=== PATIENT | female | born 1990 | race Caucasian/White ===

== ENCOUNTER 2024-01-30 11:21 | Emergency (ER) | payer BC, MEDICAID, SELFPAY ==
[2024-01-30 11:25] VITALS: BP 148/90; PULSE 89; RESP 18; TEMP 36.7; O2SAT 98; BMI 30.9
[2024-01-30 11:50] LABS: Glucose Point of Care 372 mg/dL (70-110)
--- NOTE | 2024-01-30 11:53 | ED_ITS ---
HPI - Weakness 2 General: Chief complaint: Weakness Stated complaint: abnormal labs Time Seen by Provider: 01/30/24 11:41 Source: patient Mode of arrival: ambulatory Limitations: no limitations History of Present Illness: Patient is a nice 33-year-old female with a history of type 1 diabetes, anxiety, depression, and elevated cholesterol here with concerns that she could be going into early DKA . Patient states last week she came down with a stomach bug and had multiple days of diarrhea as well as nausea. She states she was not vomiting. She does state over the weekend however she began feeling more nauseous and dry heaving and now has developed a head cold . Patient states she recently was changed to an insulin pump however her insurance did not fill the pump replacement cartridges. She states she was taken off of her basal insulin and was just doing the pump but now that she is out of the refill, she has been back to her manual insulin. Patient feels like the change here along with her being ill has potentially thrown her into DKA. Patient states she has not been in DKA in over 5 years. Currently during my examination patient complains of feeling weak with a headache. MD Complaint: generalized weakness Onset (ago): day(s) Duration: constant Location: generalized Migration: none Relieving factors: none Exacerbating factors: none Context: other (possible DKA) Associated symptoms: Reports headache(s) and nausea; Denies chest pain, chills, dysuria, fever(s), syncope or vomiting Review of Systems 2 Const: Denies: fever(s), chills, body aches, fatigue or malaise Eyes: Denies: change in vision, blurry vision or photophobia Card: Denies: chest pain, palpitations, irregular heart rhythm, lightheadedness, syncope or dyspnea on exertion Resp: Denies: dyspnea, productive cough or pain on inspiration GI: Reports: nausea; Denies: abdominal pain, vomiting, hematemesis, heartburn or diarrhea : Denies: flank pain, difficulty voiding, dysuria, urinary frequency, urinary urgency or urinary hesitancy Musc: Denies: neck pain, back pain, extremity pain, extremity swelling or joint pain Skin/Breast: Denies: rash Neuro: Reports: headache(s); Denies: numbness in extremities, weakness in extremities, sensory changes or dizziness PFS ED 2 PFSH: Medical History High cholesterol Type 1 diabetes Surgical History History of tonsillectomy Social History Smoking and tobacco/nicotine status: never used tobacco/nicotine Physical Exam 2 Const: COMMON NORMALS: no acute distress, average body habitus, patient oriented x3, no limitations, healthy appearing, alert and well nourished G ENERAL APPEARANCE: cooperative ORIENTATION/CONSCIOUSNESS: Yes awake, Yes oriented to person, Yes oriented to place and Yes oriented to time HENMT: COMMON NORMALS: normocephalic and atraumatic HEAD & SCALP: normal to inspection, normocephalic and atraumatic FACE & SINUS: normal facial exam and sinus tenderness MOUTH: Normal oral and palatal mucosa present and lip normal THROAT: posterior oropharynx normal and tonsils normal Eye: GENERAL EYE: appearance normal, both eyes and all related structures Neck/C-Spine: COMMON NORMALS: full ROM, no lymphadenopathy, supple and no meningeal signs Chest: COMMONS NORMALS: normal inspection of the chest Resp: COMMON NORMALS: normal respiratory effort and clear to auscultation bilaterally AUSCULTATION: clear to auscultation bilaterally Cardio: COMMON NORMALS: regular rate and regular rhythm RATE: regular rate RHYTHM: regular rhythm GI: COMMON NORMALS: Normal to inspection, nondistended, normoactive bowel sounds present, Soft to palpation, non-tender, No hepatosplenomegaly present and no masses PALPATION: Yes Soft to palpation and Yes No hepatosplenomegaly present : COMMON NORMALS: Yes no CVA tenderness BLADDER/KIDNEY EXAM: Yes no CVA tenderness Back/Pelvis: COMMON NORMALS: no CVA tenderness and thoracic and lumbar spine normal to inspection Extremity: COMMON NORMALS: normal to inspection GENERAL: Yes normal exam except as noted Neuro: OMI COMA SCALE: document GCS findings Omi coma scale eye opening: Spontaneous Trezevant coma scale verbal response: Orientated Trezevant coma scale motor response: Obey commands Trezevant coma scale total score: 15 COMMON NORMALS: patient oriented x3, moves all extremities, no focal motor deficits and no sensory deficits noted SENSORIUM/ORIENTATION: Yes alert, Yes oriented to person, Yes oriented to place and Yes oriented to time MENINGEAL SIGNS: Yes no meningeal signs Skin: COMMON NORMALS: no rashes or lesions noted GENERAL SKIN EXAM: no rashes or lesions noted Course 2 Vital Signs: Vital signs: Vital Signs Temperature 98.1 F 01/30/24 11:25 Pulse Rate 82 01/30/24 12:03 Respiratory Rate 16 01/30/24 13:06 Blood Pressure 144/90 01/30/24 13:06 Pulse Oximetry 99 01/30/24 13:06 Oxygen Delivery Me thod Room Air 01/30/24 13:06 MDM - Weakness Medical Decision Making Patient arrives in no acute distress with stable vital signs. Blood work overall is not indicative of acute DKA. Her serum ketones are negative. Her ABG pH is normal. Gap is mildly elevated at 22.4. Remainder of labs including her bicarb are normal. Glucose upon arrival was 378. She states her glucose averages at home are roughly 250. Patient was given insulin and fluids here and repeat glucose is 249. UA obtained which does not show infection. Her CXR is normal. Respiratory panel collected and pending. Most likely symptoms including her hyperglycemia secondary to recent viral illness. I do recommend she speak to Dr. Danielson in regards to current insulin regimen as she is currently awaiting preauthorization for insurance to cover refill pump cartridges. Currently she is back to doing her manual fast acting insulin. Recommend speaking to their office about restarting her basal insulin in the meantime. Patient is stable for discharge from an ED standpoint. Lab Data 01/30/24 11:58 01/30/24 11:58 Radiology Impressions Chest X-Ray 01/30/24 12:33 IMPRESSION: No acute findings. Laboratory Results WBC 14.67 10^3/uL (3.29-11.43) H 01/30/24 11:58 RBC 4.30 10^6/uL (3.85-5.65) 01/30/24 11:58 Hgb 12.90 g/dL (11.27-16.99) 01/30/24 11:58 Hct 39.7 % (36-47) 01/30/24 11:58 MCV 92.3 fl (85-98) 01/30/24 11:58 MCH 30.0 pg (27-33) 01/30/24 11:58 MCHC 32.5 g/dL (30-55) 01/30/24 11:58 RDW 13.8 % (12.1-15.1) 01/30/24 11:58 Plt Count 261 10^3/cmm (157-399) 01/30/24 11:58 MPV 12.4 fL (7.4-10.4) H 01/30/24 11:58 Neut % (Auto) 79.7 % 01/30/24 11:58 Lymph % (Auto) 14.9 % 01/30/24 11:58 Holt % (Auto) 4.6 % 01/30/24 11:58 Eos % (Auto) 0.2 % 01/30/24 11:58 Baso % (Auto) 0.3 % 01/30/24 11:58 Neut # (Auto) 11.68 10^3/uL (1.8-7.7) H 01/30/24 11:58 Lymph # (Auto) 2.2 10^3/uL (0.8-4.8) 01/30/24 11:58 Holt # (Auto) 0.7 10^3/uL (0.2-0.9) 01/30/24 11:58 Eos # (Auto) 0.0 10^3/uL (0.0-0.8) 01/30/24 11:58 Baso # (Auto) 0.1 10^3/uL (0.0-0.1) 01/30/24 11:58 Nucleated RBC % (auto) 0 % 01/30/24 11:58 Nucleated RBCs # 0.0 /100WBC 01/30/24 11:58 Specimen Type Arterial 01/30/24 11:58 Sample Site Radial, left 01/30/24 11:58 ABG pH 7.41 (7.35-7.45) 01/30/24 11:58 ABG pCO2 34.5 mmHg (35-45) L 01/30/24 11:58 ABG pO2 77.7 mmHg (80.0-100.0) L 01/30/24 11:58 ABG PO2/FiO2 Ratio 0 01/30/24 11:58 ABG HCO3 21.9 mmol/L (22-26) L 01/30/24 11:58 ABG Base Excess -2.1 mmol/L (-2.0-2.0) L 01/30/24 11:58 Trevon Test Pos 01/30/24 11:58 Hematocrit 38.3 % (37-47) 01/30/24 11:58 Hgb O2 Saturation 95.7 % (95-100) 01/30/24 11:58 Carboxyhemoglobin 0.8 %THgb (0.4-20.1) 01/30/24 11:58 Methemoglobin 0.4 % (0.4-1.5) 01/30/24 11:58 Total Hemoglobin 12.5 g/dL (12-16) 01/30/24 11:58 O2 Delivery Device Room air 01/30/24 11:58 FiO2 21.0 % 01/30/24 11:58 Health Education Aide ID [place] 01/30/24 11:58 Sodium 133 mmol/L (136-145) L 01/30/24 11:58 Potassium 4.4 mmol/L (3.5-5.1) 01/30/24 11:58 Chloride 93 mmol/L (98-107) L 01/30/24 11:58 Carbon Dioxide 22 mmol/L (22-29) 01/30/24 11:58 Anion Gap 22.4 (5-19) H 01/30/24 11:58 BUN 10 mg/dL (6-20) 01/30/24 11:58 Creatinine 0.7 mg/dL (0.5-0.9) 01/30/24 11:58 GFR Calculation 97.0 mL/min (90-130) 01/30/24 11:58 Glucose 378 mg/dL (65-115) H 01/30/24 11:58 POC Glucose 249 mg/dL (70-110) H 01/30/24 13:03 Calculated Osmolality 291 mOsm/kg (285-295) 01/30/24 11:58 Calcium 8.9 mg/dL (8.5-10.5) 01/30/24 11:58 Phosphorus 2.5 mg/dL (2.5-4.5) 01/30/24 11:58 Magnesium 1.8 mg/dL (1.7-2.3) 01/30/24 11:58 Total Bilirubin 0.4 mg/dL (0.15-1.2) 01/30/24 11:58 AST 17 U/L (0-32) 01/30/24 11:58 ALT 21 U/L (0-33) 01/30/24 11:58 Alkaline Phosphatase 86 U/L (35-105) 01/30/24 11:58 Total Protein 7.2 g/dL (6.6-8.7) 01/30/24 11:58 Albumin 4.1 g/dL (3.5-5.2) 01/30/24 11:58 Globulin 3.1 g/dL (1.3-4.6) 01/30/24 11:58 Lipase 24 U/L (13-60) 01/30/24 11:58 HCG, Qual Negative (Negative) 01/30/24 11:58 Urine Color Yellow (Yellow) 01/30/24 12:15 Urine Appearance Clear (CLEAR) 01/30/24 12:15 Urine pH 5 (5-7) 01/30/24 12:15 Ur Specific [place] 1.015 (1.005-1.030) 01/30/24 12:15 Urine Protein Neg (Negative) 01/30/24 12:15 Urine Glucose (UA) 4+ (Normal) H 01/30/24 12:15 Urine Ketones 3+ (Negative) H 01/30/24 12:15 Urine Blood Neg (Negative) 01/30/24 12:15 Urine Nitrate Negative (Negative) 01/30/24 12:15 Urine Bilirubin Neg (Negative) 01/30/24 12:15 Urine Urobilinogen Norm mg/dL (Negative) 01/30/24 12:15 Ur Leukocyte Esterase Negative (Negative) 01/30/24 12:15 Serum Ketones Negative (Negative) 01/30/24 11:58 All radiology interpretation(s) finalized by discharge Discharge Plan Discharge Patient Disposition: Home Clinical Impression: Viral illness, Hyperglycemia Condition: Stable Prescriptions: No Action (DME) Dexcom G6 Transfusion Aide Misc See Rx Instructions .Route Rx Instructions: As directed (DME) Dexcom G6 Sensor Device See Rx Instructions .Route Rx Instructions: As directed (DME) Dexcom G6 Transmitter Device See Rx Instructions .Route Rx Instructions: As directed (DME) Omnipod 5 G6 Intro Kit (Gen 5) Cartridge See Rx Instructions .Route Qty: 1 0RF Rx Instructions: As directed (DME) Omnipod 5 G6 Pods (Gen 5) Cartridge See Rx Instructions .Route Qty: 5 1RF Rx Instructions: As directed insulin lispro [Humalog U-100 Insulin] 100 unit/mL solution See Rx Instructions continuous subcutaneous infusion .via pump Qty: 40 1RF Rx Instructions: 100 units max daily dose VIA PUMP; sertraline 100 mg tablet 100 mg PO DAILY buspirone 10 mg tablet 10 mg PO BID amoxicillin-pot clavulanate 875-125 mg tablet 1 tab PO BID Vitamin D3 25 mcg (1,000 unit) Capsule 25 mcg PO DAILY Discharge Orders: Discharge ED (Routine); Ordered 01/30/24 Ordered By: Letty Meier Referrals: Radha Quijano DO [Primary Care Provider] - Activity Restrictions/Additional Instructions: As we discussed please contact your triage registered nurse for further instructions in regards to your insulin as you await prior authorization from your insurance for refills for your insulin pump. Coding Level of Care Code ED [employer]rol[employer] Dispatcher for Iris Christiansen
[2024-01-30 12:02] LABS: ABG PCO2 34.5 mmHg (35-45); ABG PH Result 7.41 (7.35-7.45); Arterial Blood Gas Hematocrit 38.3 % (37-47); Base Excess ABG -2.1 mmol/L (-2.0-2.0); Blood Gas Allen Test Pos; Blood Gas Operator Identificat MONRO; Blood Gas Sample Site Radial, left; Blood Gas Sample Type Arterial; Carboxyhemoglobin 0.8 %THgb (0.4-20.1); HCO3 ABG 21.9 mmol/L (22-26); HGB O2 Sat 95.7 % (95-100); Methemoglobin 0.4 % (0.4-1.5); Oxygen Device ROOM AIR; PO2 ABG 77.7 mmHg (80.0-100.0); PO2 FiO2 Ratio Arterial Blood 0; Total Hemoglobin 12.5 g/dL (12-16)
[2024-01-30 12:03] VITALS: BP 144/90; PULSE 82; RESP 16; O2SAT 95
[2024-01-30 12:05] LABS: Basophils # 0.1 10^3/uL (0.0-0.1); Basophils % 0.3 %; Eosinophils % 0.2 %; Hematocrit 39.7 % (36-47); Lymphocytes # 2.2 10^3/uL (0.8-4.8); Lymphocytes % 14.9 %; Mean Corpuscular HGB Conc 32.5 g/dL (30-55); Mean Corpuscular Volume 92.3 fl (85-98); Mean Platelet Volume 12.4 fL (7.4-10.4); Monocytes # 0.7 10^3/uL (0.2-0.9); Monocytes % 4.6 %; Neutrophils # 11.68 10^3/uL (1.8-7.7); Neutrophils % 79.7 %; Nucleated Red Blood Cells % 0 %; Platelet Count 261 10^3/cmm (157-399); Red Cell Distribution Width 13.8 % (12.1-15.1); White Blood Count 14.67 10^3/uL (3.29-11.43)
[2024-01-30 12:20] LABS: HCG, Serum Qual Negative (Negative)
[2024-01-30 12:20] LABS: Add Urine Microscopic? NO; Charge for UA Resulting for Rev
[2024-01-30] MEDS: sodium chloride 0.9% 1,000 ML 999 ML IV (12:20)
[2024-01-30] MEDS: insulin regular-human 100 units/1 mL 10 UNIT IVP (12:20)
[2024-01-30 12:22] LABS: Ketone (Acetest) Serum Negative (Negative)
[2024-01-30 12:25] LABS: Bilirubin Urine Neg (Negative); Blood Urine Neg (Negative); Glucose Urine UA 4+ (Normal); Ketones Urine 3+ (Negative); Leukocyte Esterase Urine Negative (Negative); Nitrate Urine Negative (Negative); Protein Urine Neg (Negative); Specific Gravity, Urine 1.015 (1.005-1.030); Urine Appearance Clear (CLEAR); Urine Color Yellow (Yellow); Urobilinogen Urine Norm (Negative); pH Urine 5 (5-7)
[2024-01-30 12:28] LABS: Alanine Aminotransferase 21 U/L (0-33); Albumin Level 4.1 g/dL (3.5-5.2); Alkaline Phosphatase 86 U/L (35-105); Anion Gap 22.4 (5-19); Aspartate Amino Transferase 17 U/L (0-32); Blood Urea Nitrogen 10 mg/dL (6-20); Calcium 8.9 mg/dL (8.5-10.5); Carbon Dioxide 22 mmol/L (22-29); Chloride 93 mmol/L (98-107); Globulin 3.1 g/dL (1.3-4.6); Glucose 378 mg/dL (65-115); Lipase 24 U/L (13-60); Magnesium 1.8 mg/dL (1.7-2.3); Osmolality Calculated 291 mOsm/kg (285-295); Phosphorus 2.5 mg/dL (2.5-4.5); Potassium 4.4 mmol/L (3.5-5.1); Sodium 133 mmol/L (136-145); Total Bilirubin 0.4 mg/dL (0.15-1.2); Total Protein 7.2 g/dL (6.6-8.7)
--- NOTE | 2024-01-30 12:33 | XRR_ITS ---
PROCEDURE INFORMATION: Exam: XR Chest Exam date and time: 01/30/2024 12:37 PM Age: 33 years old Clinical indication: Cough; Additional info: Uri like symptoms TECHNIQUE: Imaging protocol: Radiologic exam of the chest. Views: 1 view. COMPARISON: No relevant prior studies available. FINDINGS: Lungs: Unremarkable. No consolidation. Pleural spaces: Unremarkable. No pleural effusion. No pneumothorax. Heart/Mediastinum: Unremarkable. No cardiomegaly. Bones/joints: Unremarkable. XR/XR chest 1V portable [id number] IMPRESSION: No acute findings.
[2024-01-30 13:05] LABS: Glucose Point of Care 249 mg/dL (70-110)
[2024-01-30 13:06] VITALS: BP 144/90; RESP 16; O2SAT 99
[2024-01-30 13:35] VITALS: BP 122/78; PULSE 81; RESP 16; O2SAT 99
[2024-01-30 14:03] LABS: Adenovirus Not Detected (NOT DETECT); Chlamydia Pneumoniae Not Detected (NOT DETECT); Coronavirus 229E,HKU1,NL63,OC4 Not Detected (NOT DETECT); Human Metapneumovirus Not Detected (NOT DETECT); Human Rhinovirus/Enterovirus Detected (NOT DETECT); Influenza A Not Detected (NOT DETECT); Influenza A H1 Not Detected (NOT DETECT); Influenza A H1-2009 Not Detected (NOT DETECT); Influenza A H3 Not Detected (NOT DETECT); Influenza B Not Detected (NOT DETECT); Mycoplasma Pneumoniae Not Detected (NOT DETECT); Parainfluenza Virus Type 1 Not Detected (NOT DETECT); Parainfluenza Virus Type 2 Not Detected (NOT DETECT); Parainfluenza Virus Type 3 Not Detected (NOT DETECT); Parainfluenza Virus Type 4 Not Detected (NOT DETECT); Respiratory Syncytial Virus A Not Detected (NOT DETECT); SARS-COV-2 Not Detected (NOT DETECT)
[2024-01-30 14:07] LABS: Respiratory Syncytial Virus B Detected (NOT DETECT)
== END 2024-01-30 13:36 | disposition home or self-care (01) ==
PROVIDERS: Emergency Medicine; Emergency Provider Physician Assistant; PCP Family Medicine
DX: B34.9 Viral infection, unspecified (principal); E10.65 Type 1 diabetes mellitus with hyperglycemia; Z79.4 Long term (current) use of insulin
CPT/HCPCS: 36416; 36600; 71045; 80053; 81003; 82009; 82805; 82962; 83690; 83735; 84100; 84703; 85025; 87486; 87581; 87633; 96361; 96374; 99284; J1815; J7030

== ENCOUNTER 2024-04-06 07:33 | Outpatient (CLI) | payer BC, SELFPAY ==
--- NOTE | 2024-04-06 07:45 | US_ITS ---
WS: [id number] RIGHT UPPER QUADRANT ULTRASOUND HISTORY: RUQ PAIN COMPARISON: 12/05/2012 Liver: 16.5 cm in length. Normal size liver and echogenicity. No bile duct dilatation or mass. Portal Vein: Normal hepatopetal flow with monophasic waveform. Gallbladder: Normally distended gallbladder. There is a small gallbladder polyp of 2 mm along the non dependent wall. No pericholecystic fluid. CBD: 0.3 cm Pancreas: Obscured by bowel gas. Right kidney: 12.1 cm in length. Normal size and echogenicity. No hydronephrosis or mass. Aorta and IVC: Unremarkable abdominal aorta and IVC. No ascites. US/US abdomen limited [id number] IMPRESSION: 1. Very small gallbladder polyp. No stones in the gallbladder. 2. No bile duct dilatation. 3. Completely obscured pancreas.
== END 2024-04-06 07:34 | disposition home or self-care (01) ==
LOC: RAD 07:33
PROVIDERS: PCP Family Medicine; Visit Provider Family Medicine
DX: K82.4 Cholesterolosis of gallbladder (principal); R10.11 Right upper quadrant pain
CPT/HCPCS: 76705

== ENCOUNTER 2024-06-29 21:41 | Inpatient (IN) | payer BC, SELFPAY ==
[2024-06-29 21:45] VITALS: BMI 28.5
[2024-06-29 21:48] VITALS: BP 140/77; PULSE 104; RESP 23; TEMP 37.3; O2SAT 100
--- NOTE | 2024-06-29 21:54 | P.HP_ITS ---
Providers/Chief Complaint Admitting Physician: Rob Beckham MD Primary Care Provider: Radha Quijano DO History of Present Illness Francisca Pavon is a 33 year old female with a past medical history significant for type 1 diabetes mellitus, anxiety, depression, and hyperlipidemia who transfers from [facility] emergency department for higher level care in the setting of diabetic ketoacidosis. Patient reports she was in her usual state of health until 06/28 when she woke up with severe nausea and vomiting. She reports she has been unable to hold anything down. Nausea and vomiting was followed by diarrhea then dry heaving. She endorses generalized malaise and fatigue. Oral intake worsens symptoms. Denies alleviating factors. Denies fevers, chills, dysuria, or other infectious symptoms. Patient has a known history of type 1 diabetes mellitus. She reports she was diagnosed around age 20 at the same time she found out she was . She follows with Dr. Danielson at [facility] endocrinology clinic. She was previously on CGM and continuous insulin pump. She reports over the summer she lost her healthcare coverage and therefore could not afford the supplies or insulin. She states she has been using short acting insulin and carb counting on a 1:10 ratio. She has been using small doses of short acting insulin to try to cover for basal needs. She states that she now does have coverage and plans on restarting her CGM and insulin pump after discharge. At the outside hospital ED, labs showed: CBC 16.2>13.6/43.5<440 135/4.4/97/5/11/0.7<471 AG 37 Lactic acid 3.3 -> 2.0 ABG 7.18/17/112/6 on FiO2 0.21 UDS +THC UA 2+ glucose, 3+ ketones, WBC none, LE negative, nitrite negative Urine test negative Review of Systems Narrative: A complete review of systems was obtained and is negative except as stated in HPI. Medications/Allergies Home Medications Medication Instructions Recorded Confirmed Last Taken Type blood-glucose meter,continuous 05/05/23 04/12/24 Unknown History (Dexcom G6 [place] [facility] [place]) blood-glucose sensor (Dexcom G6 05/05/23 04/12/24 Unknown History Sensor device) blood-glucose transmitter (Dexcom 05/05/23 04/12/24 Unknown History G6 Transmitter device) amoxicillin 875 mg-potassium 1 tab PO BID 01/30/24 04/12/24 Unknown History clavulanate 125 mg tablet buspirone 10 mg tablet 10 mg PO BID 01/30/24 04/12/24 01/29/24 History cholecalciferol (vitamin D3) 25 25 mcg PO DAILY 01/30/24 04/12/24 01/29/24 History mcg (1,000 unit) capsule (Vitamin D3) insulin lispro 100 unit/mL See Rx Instructions continuous 01/30/24 04/12/24 01/30/24 Rx subcutaneous solution (Humalog subcutaneous infusion .via pump U-100 Insulin) #40 mL sertraline 100 mg tablet 100 mg PO DAILY 01/30/24 04/12/24 01/29/24 History insulin pump cartridge,automated #1 ea 02/06/24 04/12/24 Unknown Rx dose,BT with controller subcutaneous (Omnipod 5 G6 Intro Kit (Gen 5) subcutaneous cartridge with controller) insulin pump cart,automated,BT #10 ea 03/19/24 04/12/24 Unknown Rx (Omnipod 5 G6 Pods (Gen 5) subcutaneous cartridge) Allergies Allergy/AdvReac Type Severity Reaction Status Date / Time No Known Allergies Allergy Verified 04/12/24 07:57 PFSH Acute PFSH: Medical History Depression Anxiety High cholesterol Type 1 diabetes Surgical History History of surgery on arm History of tonsillectomy Family History Mother Diabetes mellitus type 1 Grandmother Diabetes mellitus, type 2 Social History Smoking and tobacco/nicotine status: never used tobacco/nicotine Physical Exam Narrative: General: Patient is awake. Appears fatigued. Head: Normocephalic. Atraumatic. EOM intact. Dry mucous membranes. Neck: No JVD. Cardiovascular: RRR. No gallops. No murmurs. No peripheral edema. Lungs: Clear to auscultation, no use of accessory muscles, no crackles or wheezes. Skin: No jaundice. No rashes. Abdomen: Normal bowel sounds, abdomen soft and nontender. Genito Urinary: Genital exam not performed since complaints not related. Rectal: Rectal exam not performed since no symptoms indicated blood loss. Extremities: No cyanosis or clubbing. Musculoskeletal: No swollen or erythematous joints. Neurological: Moves all 4 extremities. No myoclonus. A&P Assessment and plan (1) DKA (diabetic ketoacidosis): Trigger suspected to be insulin nonadherence Urinalysis negative for infection outside hospital Urine test negative at outside hospital Evaluate for underlying infection Start insulin drip Trend electrolytes every 4 hours N.p.o., ice chips and medications okay Aggressive IV fluids (2) Severe dehydration: Severe dehydration with intractable nausea and vomiting secondary to DKA Aggressive IV fluid resuscitation Antiemetics as needed Supportive care (3) Type 1 diabetes: Previously on CGM and insulin pump, she plans to restart that she has coverage Follows with Dr. Danielson, will need outpatient follow-up after discharge DKA management as above (4) Anxiety: Plan to continue home meds after list is updated (5) Depression: Plan to continue home meds after list is updated (6) High cholesterol: Plan to continue home meds after list is updated Plan DVT prophylaxis: Lovenox CODE STATUS: Full code Attestations Medical Necessity Statement*: Patient presents with diabetic ketoacidosis with severe dehydration and sequela of hematologic and metabolic derangements with expected hospitalization to cross 2 midnights for appropriate treatment of DKA for which patient will be admitted to inpatient status. Coding Level of Care Code Acute Code for [facility] Diagnoses DKA (diabetic ketoacidosis) E11.10 Severe dehydration E86.0 Type 1 diabetes E10.9 Anxiety F41.9 Depression F32.A High cholesterol E78.00
[2024-06-29 22:00] VITALS: BP 140/77; PULSE 97; RESP 17; O2SAT 99
[2024-06-29] MEDS: INSULIN REGULAR IN 0.9 % NACL 100 UNIT/100 ML BAG 7.5 UNIT IV (22:27)
[2024-06-29] MEDS: ondansetron 2 mg/ML SDV 2 mL 4 MG IVP (22:38)
[2024-06-29] MEDS: enoxaparin 40 mg/0.4 mL Syringe SUBCUT (22:38)
[2024-06-29] MEDS: dextrose 5%-sod chloride 0.45% 1,000 ML 150 ML IV (22:46)
[2024-06-29 22:48] LABS: Basophils % 0.1 %; Hematocrit 40.7 % (36-47); Lymphocytes # 1.8 10^3/uL (0.8-4.8); Lymphocytes % 11.9 %; Mean Corpuscular HGB Conc 31.4 g/dL (30-55); Mean Corpuscular Hemoglobin 29.7 pg (27-33); Mean Corpuscular Volume 94.4 fl (85-98); Mean Platelet Volume 12.9 fL (7.4-10.4); Monocytes # 1.4 10^3/uL (0.2-0.9); Monocytes % 9.3 %; Neutrophils # 11.96 10^3/uL (1.8-7.7); Neutrophils % 78.2 %; Nucleated Red Blood Cells % 0 %; Platelet Count 341 10^3/cmm (157-399); Red Blood Count 4.31 10^6/uL (3.85-5.65); Red Cell Distribution Width 14.1 % (12.1-15.1); White Blood Count 15.32 10^3/uL (3.29-11.43)
[2024-06-29 23:00] VITALS: BP 144/79; PULSE 103; RESP 20; O2SAT 100
[2024-06-29 23:04] VITALS: PULSE 99
[2024-06-29 23:09] LABS: Alanine Aminotransferase 15 U/L (0-33); Albumin Level 4.3 g/dL (3.5-5.2); Alkaline Phosphatase 95 U/L (35-105); Anion Gap 25.4 (5-19); Aspartate Amino Transferase 13 U/L (0-32); Blood Urea Nitrogen 9 mg/dL (6-20); Calcium 9.5 mg/dL (8.5-10.5); Carbon Dioxide 11 mmol/L (22-29); Chloride 105 mmol/L (98-107); Creatinine Clr Calc Pharmacy 89.2783; Globulin 2.1 g/dL (1.3-4.6); Glomerular Filtration Rate 72.6 mL/min (90-130); Glucose 238 mg/dL (65-115); Osmolality Calculated 290 mOsm/kg (285-295); Phosphorus 1.7 mg/dL (2.5-4.5); Potassium 4.4 mmol/L (3.5-5.1); Sodium 137 mmol/L (136-145); Total Bilirubin 0.3 mg/dL (0.15-1.2); Total Protein 6.4 g/dL (6.6-8.7)
[2024-06-29 23:14] LABS: Procalcitonin 0.16 ng/mL (0-0.5)
[2024-06-29 23:44] LABS: Glucose Point of Care 246 mg/dL (70-110)
[2024-06-30] VITALS (24 sets, daily range): BP systolic 94–159; BP diastolic 55–88; PULSE 70–112; RESP 3–27; TEMP 37.6; O2SAT 89–100
[2024-06-30 00:25] LABS: ABG PCO2 23.1 mmHg (35-45); ABG PH Result 7.22 (7.35-7.45); Arterial Blood Gas Hematocrit 35.9 % (37-47); Base Excess ABG -16.6 mmol/L (-2.0-2.0); Blood Gas Sample Type Arterial; HCO3 ABG 9.4 mmol/L (22-26)
[2024-06-30 00:28] LABS: Blood Gas Operator Identificat ED; Blood Gas Sample Site Brachial, left; Oxygen Device ROOM AIR; PO2 FiO2 Ratio Arterial Blood 504
[2024-06-30 00:36] LABS: Glucose Point of Care 198 mg/dL (70-110)
[2024-06-30 01:44] LABS: Glucose Point of Care 223 mg/dL (70-110)
[2024-06-30 02:42] LABS: Blood Urea Nitrogen 8 mg/dL (6-20); Calcium 8.5 mg/dL (8.5-10.5); Carbon Dioxide 14 mmol/L (22-29); Chloride 108 mmol/L (98-107); Creatinine Clr Calc Pharmacy 100.4381; Glomerular Filtration Rate 83.1 mL/min (90-130); Glucose 233 mg/dL (65-115); Osmolality Calculated 290 mOsm/kg (285-295); Sodium 137 mmol/L (136-145)
[2024-06-30 02:59] LABS: Glucose Point of Care 239 mg/dL (70-110)
[2024-06-30] MEDS: dextrose 5%-sod chloride 0.45% 1,000 ML 200 ML IV ×4 (03:40→21:51)
[2024-06-30] MEDS: ondansetron 4 MG Tablet PO (04:06)
--- NOTE | 2024-06-30 04:09 | PC.NURSE ---
Pt given IVP zofran (see MAR). Pt began c/o nausea creeping back . This nurse sent Voalte message to Dr. Farrell to ask if PO PRN dose of zofran could be given even though it had not been 8 hr since IVP dose[address] Farrell approved PO dose now. See MAR.
[2024-06-30 05:47] LABS: Glucose Point of Care 257 mg/dL (70-110)
[2024-06-30 05:47] LABS: Glucose Point of Care 211 mg/dL (70-110)
[2024-06-30 06:01] LABS: Glucose Point of Care 255 mg/dL (70-110)
[2024-06-30 07:20] LABS: Glucose Point of Care 189 mg/dL (70-110)
[2024-06-30] MEDS: ondansetron 2 mg/ML SDV 2 mL 4 MG IVP (07:40)
--- NOTE | 2024-06-30 08:25 | P.PN_ITS ---
Subjective 2 Subjective: Seen this morning. Patient is currently on insulin drip on DKA protocol. Last checked anion gap was 17. Morning BMP was canceled for unknown reason. Repeat BMP has been ordered. Patient states that she is unable to have access to a insulin pump CGM due to financial reasons. She will be able to have access again on the . Vitals/I&O/Wt Last Vital Signs Temp 99.1 F 06/29/24 21:48 Pulse 80 06/30/24 06:00 Resp 16 06/30/24 04:00 BP 105/71 06/30/24 04:00 Pulse Ox 100 06/30/24 04:00 O2 Del Method Room Air 06/29/24 21:45 06/29/24 06/30/24 06/30/24 22:59 06:59 14:59 Intake Total 911.617 / 911.617 4.35 / 4.35 Balance 911.617 / 911.617 4.35 / 4.35 Weight last 48 hrs Weight 75.5 kg Physical Exam 2 Narrative: General: Patient is awake alert and oriented lying in bed. Cardiovascular: RRR. No gallops. No murmurs. No peripheral edema. Lungs: Clear to auscultation, no use of accessory muscles, no crackles or wheezes. Abdomen: Normal bowel sounds, abdomen soft and nontender. Extremities: No cyanosis or clubbing. Neurological: Moves all 4 extremities. Data 06/29/24 22:40 06/30/24 08:53 Micro: Microbiology 06/29/24 22:36 Blood Culture - Preliminary Blood SPECIMEN COLLECTED 06/29/24 22:40 Blood Culture - Preliminary Blood SPECIMEN COLLECTED A&P Assessment and plan (1) DKA (diabetic ketoacidosis): Trigger suspected to be insulin nonadherence Urinalysis negative for infection outside hospital Urine test negative at outside hospital Evaluate for underlying infection Continue insulin drip DKA protocol. Trend electrolytes every 4 hours N.p.o., ice chips and medications okay Aggressive IV fluids Will bridge patient once anion gap is closer to 14. (2) Severe dehydration: Severe dehydration with intractable nausea and vomiting secondary to DKA Aggressive IV fluid resuscitation Antiemetics as needed Supportive care (3) Type 1 diabetes: Previously on CGM and insulin pump, she plans to restart that she has coverage Follows with Dr. Danielson, will need outpatient follow-up after discharge DKA management as above (4) Anxiety: Plan to continue home meds after list is updated (5) Depression: Plan to continue home meds after list is updated (6) High cholesterol: Plan to continue home meds after list is updated Plan DVT prophylaxis: Lovenox CODE STATUS: Full code Attestations 2 Medical Necessity Statement*: DKA protocol and insulin drip Diagnoses DKA (diabetic ketoacidosis) E11.10 Severe dehydration E86.0 Type 1 diabetes E10.9 Anxiety F41.9 Depression F32.A High cholesterol E78.00
[2024-06-30 09:20] LABS: Anion Gap 17.9 (5-19); Blood Urea Nitrogen 6 mg/dL (6-20); Calcium 8.2 mg/dL (8.5-10.5); Carbon Dioxide 16 mmol/L (22-29); Chloride 104 mmol/L (98-107); Creatinine Clr Calc Pharmacy 114.7864; Glucose 320 mg/dL (65-115); Osmolality Calculated 288 mOsm/kg (285-295); Potassium 3.9 mmol/L (3.5-5.1); Sodium 134 mmol/L (136-145)
[2024-06-30 09:33] LABS: Glucose Point of Care 194 mg/dL (70-110)
[2024-06-30 09:33] LABS: Glucose Point of Care 360 mg/dL (70-110)
[2024-06-30 10:36] LABS: Glucose Point of Care 383 mg/dL (70-110)
[2024-06-30 11:42] LABS: Glucose Point of Care 389 mg/dL (70-110)
[2024-06-30] MEDS: metoclopramide 5 mg/mL SDV 2 mL 10 MG IVP (11:53)
[2024-06-30 13:44] LABS: Anion Gap 20.3 (5-19); Blood Urea Nitrogen 6 mg/dL (6-20); Calcium 8.1 mg/dL (8.5-10.5); Carbon Dioxide 15 mmol/L (22-29); Chloride 104 mmol/L (98-107); Creatinine Clr Calc Pharmacy 114.7864; Glucose 345 mg/dL (65-115); Osmolality Calculated 293 mOsm/kg (285-295); Potassium 3.3 mmol/L (3.5-5.1); Sodium 136 mmol/L (136-145)
[2024-06-30 15:18] LABS: Glucose Point of Care 340 mg/dL (70-110)
[2024-06-30 18:02] LABS: Glucose Point of Care 286 mg/dL (70-110)
[2024-06-30 18:02] LABS: Glucose Point of Care 252 mg/dL (70-110)
[2024-06-30 18:02] LABS: Glucose Point of Care 341 mg/dL (70-110)
[2024-06-30 18:02] LABS: Glucose Point of Care 253 mg/dL (70-110)
[2024-06-30 18:45] LABS: Glucose Point of Care 241 mg/dL (70-110)
[2024-06-30 19:08] LABS: Anion Gap 17.3 (5-19); Blood Urea Nitrogen 4 mg/dL (6-20); Calcium 7.9 mg/dL (8.5-10.5); Carbon Dioxide 20 mmol/L (22-29); Chloride 101 mmol/L (98-107); Creatinine Clr Calc Pharmacy 114.7864; Glucose 263 mg/dL (65-115); Osmolality Calculated 286 mOsm/kg (285-295); Potassium 3.3 mmol/L (3.5-5.1); Sodium 135 mmol/L (136-145)
[2024-06-30 21:13] LABS: Glucose Point of Care 225 mg/dL (70-110)
[2024-06-30] MEDS: enoxaparin 40 mg/0.4 mL Syringe SUBCUT (21:51)
[2024-06-30 22:07] LABS: Glucose Point of Care 252 mg/dL (70-110)
[2024-06-30 22:07] LABS: Glucose Point of Care 223 mg/dL (70-110)
[2024-06-30 23:07] LABS: Glucose Point of Care 240 mg/dL (70-110)
[2024-07-01] VITALS (24 sets, daily range): BP systolic 97–162; BP diastolic 54–98; PULSE 66–99; RESP 12–29; TEMP 37.1–37.7; O2SAT 97–100
[2024-07-01 00:16] LABS: Glucose Point of Care 219 mg/dL (70-110)
[2024-07-01 00:46] LABS: Anion Gap 14.1 (5-19); Blood Urea Nitrogen 3 mg/dL (6-20); Calcium 7.8 mg/dL (8.5-10.5); Carbon Dioxide 21 mmol/L (22-29); Chloride 104 mmol/L (98-107); Creatinine Clr Calc Pharmacy 133.9175; Glomerular Filtration Rate 115.9 mL/min (90-130); Glucose 210 mg/dL (65-115); Osmolality Calculated 285 mOsm/kg (285-295); Potassium 3.1 mmol/L (3.5-5.1); Sodium 136 mmol/L (136-145)
[2024-07-01] MEDS: INSULIN REGULAR IN 0.9 % NACL 100 UNIT/100 ML BAG IV (01:05)
[2024-07-01 01:11] LABS: Glucose Point of Care 150 mg/dL (70-110)
[2024-07-01] MEDS: calcium carbonate 500 mg Chew Tablet 1000 MG PO (01:52)
[2024-07-01 01:59] LABS: Glucose Point of Care 167 mg/dL (70-110)
[2024-07-01 02:52] LABS: Basophils % 0.2 %; Hematocrit 34.1 % (36-47); Lymphocytes # 1.3 10^3/uL (0.8-4.8); Lymphocytes % 10.3 %; Mean Corpuscular HGB Conc 33.1 g/dL (30-55); Mean Corpuscular Hemoglobin 30.3 pg (27-33); Mean Corpuscular Volume 91.4 fl (85-98); Mean Platelet Volume 12.5 fL (7.4-10.4); Monocytes % 8.1 %; Neutrophils # 9.88 10^3/uL (1.8-7.7); Neutrophils % 81.1 %; Nucleated Red Blood Cells % 0 %; Platelet Count 245 10^3/cmm (157-399); Red Blood Count 3.73 10^6/uL (3.85-5.65); Red Cell Distribution Width 14.1 % (12.1-15.1); White Blood Count 12.18 10^3/uL (3.29-11.43)
[2024-07-01 03:14] LABS: Anion Gap 18.8 (5-19); Blood Urea Nitrogen 3 mg/dL (6-20); Calcium 7.9 mg/dL (8.5-10.5); Carbon Dioxide 19 mmol/L (22-29); Chloride 100 mmol/L (98-107); Creatinine Clr Calc Pharmacy 133.9175; Glomerular Filtration Rate 115.9 mL/min (90-130); Glucose 200 mg/dL (65-115); Magnesium 1.8 mg/dL (1.7-2.3); Osmolality Calculated 282 mOsm/kg (285-295); Sodium 135 mmol/L (136-145)
[2024-07-01] MEDS: dextrose 5%-sod chloride 0.45% 1,000 ML 200 ML IV ×2 (03:23→08:49)
[2024-07-01 03:26] LABS: Potassium 2.8 mmol/L (3.5-5.1)
[2024-07-01] MEDS: lidocaine 1% 5 ML in potassium chloride premix 100 ML 26.25 ML IV (03:48)
[2024-07-01] MEDS: potassium chloride ER 20 mEq Tablet 40 MEQ PO (03:58)
[2024-07-01 04:08] LABS: Glucose Point of Care 248 mg/dL (70-110)
[2024-07-01 04:08] LABS: Glucose Point of Care 255 mg/dL (70-110)
[2024-07-01 05:00] LABS: Glucose Point of Care 221 mg/dL (70-110)
[2024-07-01 05:54] LABS: Glucose Point of Care 251 mg/dL (70-110)
[2024-07-01 08:16] LABS: Glucose Point of Care 213 mg/dL (70-110)
[2024-07-01 08:16] LABS: Glucose Point of Care 258 mg/dL (70-110)
[2024-07-01] MEDS: sodium chloride 0.9% 1,000 ML 999 ML IV (09:54)
[2024-07-01 10:00] LABS: Anion Gap 16.3 (5-19); Blood Urea Nitrogen 2 mg/dL (6-20); Calcium 8.7 mg/dL (8.5-10.5); Carbon Dioxide 22 mmol/L (22-29); Chloride 100 mmol/L (98-107); Creatinine Clr Calc Pharmacy 153.9231; Glucose 187 mg/dL (65-115); Osmolality Calculated 281 mOsm/kg (285-295); Potassium 3.3 mmol/L (3.5-5.1); Sodium 135 mmol/L (136-145)
[2024-07-01 10:05] LABS: Glucose Point of Care 168 mg/dL (70-110)
[2024-07-01] MEDS: insulin glargine 100 units/1 mL 30 UNIT SUBCUT (10:44)
[2024-07-01] MEDS: ondansetron 2 mg/ML SDV 2 mL 4 MG IVP ×2 (11:04→20:01)
[2024-07-01] MEDS: insulin lispro 100 unit/1 mL SUBCUT (12:07)
[2024-07-01 13:24] LABS: Anion Gap 24.2 (5-19); Blood Urea Nitrogen 3 mg/dL (6-20); Calcium 7.8 mg/dL (8.5-10.5); Carbon Dioxide 14 mmol/L (22-29); Chloride 97 mmol/L (98-107); Glucose 334 mg/dL (65-115); Osmolality Calculated 284 mOsm/kg (285-295); Potassium 3.2 mmol/L (3.5-5.1); Sodium 132 mmol/L (136-145)
[2024-07-01 13:30] LABS: Creatinine Clr Calc Pharmacy 192.4039
--- NOTE | 2024-07-01 13:55 | P.PN_ITS ---
Subjective 2 Subjective: Seen this morning. Patient's gap is down to 16. Will attempt to bridge. Patient does not have her OmniPod anymore. We have requested her to bring Today via family of possible. Will attempt to bridge. Patient does appear to be nauseous. Vitals/I&O/Wt Last Vital Signs Temp 98.7 F 07/01/24 04:00 Pulse 95 07/01/24 12:00 Resp 18 07/01/24 12:00 BP 162/98 07/01/24 12:00 Pulse Ox 100 07/01/24 12:00 O2 Del Method Room Air 06/29/24 21:45 06/30/24 07/01/24 07/01/24 22:59 06:59 14:59 Intake Total 1024.409 / 3041.642 1022.909 / 4064.551 2110.8 / 2110.8 Balance 1024.409 / 3041.642 1022.909 / 4064.551 2110.8 / 2110.8 Weight last 48 hrs Weight 68.855 kg Weight 75.5 kg Physical Exam 2 Narrative: General: Patient is awake alert and oriented lying in bed. Cardiovascular: RRR. No gallops. No murmurs. No peripheral edema. Lungs: Clear to auscultation, no use of accessory muscles, no crackles or wheezes. Abdomen: Normal bowel sounds, abdomen soft and nontender. Extremities: No cyanosis or clubbing. Neurological: Moves all 4 extremities. Data 07/01/24 02:26 07/01/24 12:52 Micro: Microbiology 06/29/24 22:36 Blood Culture - Preliminary Blood NEGATIVE TO DATE 06/29/24 22:40 Blood Culture - Preliminary Blood NEGATIVE TO DATE A&P Assessment and plan (1) DKA (diabetic ketoacidosis): Trigger suspected to be insulin nonadherence Urinalysis negative for infection outside hospital Urine test negative at outside hospital Evaluate for underlying infection Continue insulin drip DKA protocol. Trend electrolytes every 4 hours N.p.o., ice chips and medications okay Aggressive IV fluids Will bridge patient once anion gap is closer to 14. (2) Severe dehydration: Severe dehydration with intractable nausea and vomiting secondary to DKA Aggressive IV fluid resuscitation Antiemetics as needed Supportive care (3) Type 1 diabetes: Previously on CGM and insulin pump, she plans to restart that she has coverage Follows with Dr. Danielson, will need outpatient follow-up after discharge DKA management as above (4) Anxiety: Plan to continue home meds after list is updated (5) Depression: Plan to continue home meds after list is updated (6) High cholesterol: Plan to continue home meds after list is updated Plan DVT prophylaxis: Lovenox CODE STATUS: Full code Today's plan 07/01 Attempted to reach patient this morning however Was reopened. 24. Will order potassium 40 mill equivalent IV x 1 Normal saline with 40 of K Add bicarb drip. DC bicarb drip when bicarb around 20 range. Continue insulin drip at this time BMP every [address] abdomen pelvis as patient is nauseous which could be secondary to DKA but must rule out other causes Check troponin series to rule out as 1 of causes of DKA Most likely in DKA secondary to not having access to insulin Patient has received Dexcom sensor, glucose monitor and reader however does not have her OmniPod yet. DVT prophylaxis: On Lovenox Discussed all of the above with patient's nurse. Attestations 2 Medical Necessity Statement*: Continue to manage DKA Diagnoses DKA (diabetic ketoacidosis) E11.10 Severe dehydration E86.0 Type 1 diabetes E10.9 Anxiety F41.9 Depression F32.A High cholesterol E78.00
--- NOTE | 2024-07-01 13:56 | CTR_ITS ---
PROCEDURE INFORMATION: Exam: CT Abdomen And Pelvis Without Contrast Exam date and time: 07/01/2024 2:08 PM Age: 33 years old Clinical indication: Nausea; Additional info: Nausea, dka TECHNIQUE: Imaging protocol: Computed tomography of the abdomen and pelvis without contrast. Radiation optimization: All CT scans at this facility use at least one of these dose optimization techniques: automated exposure control; mA and/or kV adjustment per patient size (includes targeted exams where dose is matched to clinical indication); or iterative reconstruction. COMPARISON: US abdomen limited [id number] 04/06/2024 7:51 AM RADIATION DOSE METRICS: Total DLP (mGy-cm): 575.51 FINDINGS: Liver: Normal. No mass. Gallbladder and biliary ducts: Normal. No calcified stones. No ductal dilation. Pancreas: Normal. No ductal dilation. Spleen: Normal. No splenomegaly. Adrenal glands: Normal. No mass. Kidneys and ureters: Normal. No hydronephrosis. Stomach and bowel: Unremarkable. No obstruction. No mucosal thickening. Appendix: Post appendectomy. Intraperitoneal space: Unremarkable. No free air. No significant fluid collection. Vasculature: Left pelvic phleboliths. Lymph nodes: Unremarkable. No enlarged lymph nodes. Urinary bladder: Unremarkable as visualized. Reproductive: Unremarkable as visualized. Bones/joints: Right L5-S1 assimilation joint. Posterior L4-L5 disc bulge causing mild thecal sac compression. Soft tissues: Fat containing umbilical hernia. CT/CT abdomen pelvis con [id number] IMPRESSION: No acute intra-abdominal process.
--- NOTE | 2024-07-01 13:56 | ECG_ITS ---
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 Measurements Intervals [place] Rate: 76 P: 66 FL: 151 QRS: 59 QRSD: 65 T: 40 QT: 378 QTc: 426 Interpretive Statements SINUS RHYTHM WITH SINUS ARRHYTHMIA Compared to ECG 01/09/2015 15:28:06 No significant changes Electronically Signed On 07-02-2024 14:09:00 CDT by Law Ronquillo M.D. [email or web address] specialty hospital of greenvilleIOCOMmarietta memorial hospital.[place]/store/OM/[id number]
[2024-07-01] MEDS: sodium chlor 0.9% + KCl 40 mEq 40 MEQ/1,000 ML BAG 125 MEQ IV (14:22)
--- NOTE | 2024-07-01 15:07 | PC.NURSE ---
ion gap back open placed back on insulin gtt and also on kcl infusion as per order and npo to ct scan for abdomen , up to bathroom and voided freely at this time . but unable to obtain specimen . pending another iv site for bicarb gtt to start
[2024-07-01] MEDS: potassium chloride premix 100 ML 25 MEQ IV ×2 (15:17→19:39)
[2024-07-01] MEDS: sodium bicarbonate 150 MEQ in dextrose 5% 1,000 ML 100 MEQ IV (15:47)
[2024-07-01 15:52] LABS: Blood Urea Nitrogen 3 mg/dL (6-20); Calcium 7.7 mg/dL (8.5-10.5); Carbon Dioxide 18 mmol/L (22-29); Chloride 100 mmol/L (98-107); Creatinine Clr Calc Pharmacy 153.9231; Glucose 195 mg/dL (65-115); Osmolality Calculated 282 mOsm/kg (285-295); Sodium 135 mmol/L (136-145)
[2024-07-01 15:53] LABS: Troponin(5th) Baseline < 6 ng/L (0-10)
--- NOTE | 2024-07-01 15:56 | ECG_ITS ---
Test Date: 2024-07-01 Pat Name: Francisca Pavon Department: Room: [facility]09 Gender: Female Imager: : 1990 Requested By: Nasra Arshad Order Number: [id number] Kylee MD: Law Ronquillo M.D. Measurements Intervals [place] Rate: 70 P: 51 [place]: 136 QRS: 60 QRSD: 72 T: 55 QT: 398 QTc: 432 Interpretive Statements SINUS RHYTHM Compared to ECG 07/01/2024 15:29:59 Sinus arrhythmia no longer present Electronically Signed On 07-02-2024 14:15:38 CDT by Law Ronquillo M.D. [email or web address].AppFirstmississippi baptist medical centerBeijing Shiji Information Technologyparkview health montpelier hospital.[employer]/store/OM/[id number]
[2024-07-01 16:16] LABS: Glucose Point of Care 153 mg/dL (70-110)
[2024-07-01] MEDS: dextrose 5%-ns 0.45% + KCl 40 1,000 ML 100 MEQ IV (16:54)
[2024-07-01 17:57] LABS: Troponin 5 2HR 7.97 ng/L (0-10); Troponin 5 2HR Delta 1.97001 ABS# (0-10)
[2024-07-01 18:04] LABS: Glucose Point of Care 170 mg/dL (70-110)
[2024-07-01 18:26] LABS: Glucose Point of Care 221 mg/dL (70-110)
[2024-07-01 18:26] LABS: Glucose Point of Care 193 mg/dL (70-110)
[2024-07-01 19:13] LABS: Glucose Point of Care 210 mg/dL (70-110)
[2024-07-01 19:41] LABS: Bilirubin Urine Negative (Negative); Blood Urine Negative (Negative); Glucose Urine UA 3+ (Normal); Ketones Urine 3+ (Negative); Leukocyte Esterase Urine 1+ (Negative); Nitrate Urine Negative (Negative); Protein Urine Negative (Negative); Specific Gravity, Urine 1.016 (1.005-1.030); Urine Appearance Clear (CLEAR); Urine Color Yellow (Yellow); Urobilinogen Urine 0.2 mg/dL (Negative); pH Urine 5.5 (5-7)
[2024-07-01 19:47] LABS: Bacteria Urine Trace /hpf; RBC Urine 0-2 /hpf (0-2); Squamous Epithelial Cell Urine 0-5 /hpf (0-5)
--- NOTE | 2024-07-01 19:56 | ECG_ITS ---
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 Measurements Intervals [place] Rate: 75 P: 51 [place]: 145 QRS: 58 QRSD: 77 T: 54 QT: 391 QTc: 438 Interpretive Statements SINUS RHYTHM Compared to ECG 07/01/2024 17:28:38 No significant changes Electronically Signed On 07-02-2024 14:15:58 CDT by Law Ronquillo M.D. https://[employer].StereoVision Imagingking's daughters medical centerUrban Tax Service and Bookkeepingacmc healthcare system.[employer]/store/OM/[id number]
[2024-07-01 21:10] LABS: Glucose Point of Care 225 mg/dL (70-110)
[2024-07-01] MEDS: enoxaparin 40 mg/0.4 mL Syringe SUBCUT (21:56)
[2024-07-01 22:18] LABS: Anion Gap 19.8 (5-19); Blood Urea Nitrogen 2 mg/dL (6-20); Calcium 8.5 mg/dL (8.5-10.5); Carbon Dioxide 23 mmol/L (22-29); Chloride 97 mmol/L (98-107); Creatinine Clr Calc Pharmacy 153.9231; Glucose 221 mg/dL (65-115); Osmolality Calculated 285 mOsm/kg (285-295); Potassium 3.8 mmol/L (3.5-5.1); Sodium 136 mmol/L (136-145)
--- NOTE | 2024-07-01 22:23 | PC.NURSE ---
NaHco3 drip paused as ordered per Dr. Arshad. CO2 currently 23 on chemistry. Insulin drip remains off per Dr. Arshad orders, will continue to monitor blood glucose hourly.
[2024-07-01 22:40] LABS: Troponin 5 6HR Delta 0.00001 ng/L (0-12)
[2024-07-02] VITALS (16 sets, daily range): BP systolic 117–164; BP diastolic 71–96; PULSE 68–92; RESP 10–27; TEMP 37–37.3; O2SAT 98–100
[2024-07-02 01:34] LABS: Anion Gap 18.7 (5-19); Blood Urea Nitrogen 2 mg/dL (6-20); Calcium 8.4 mg/dL (8.5-10.5); Carbon Dioxide 25 mmol/L (22-29); Chloride 94 mmol/L (98-107); Creatinine Clr Calc Pharmacy 153.9231; Glucose 273 mg/dL (65-115); Osmolality Calculated 284 mOsm/kg (285-295); Potassium 3.7 mmol/L (3.5-5.1); Sodium 134 mmol/L (136-145)
[2024-07-02] MEDS: dextrose 5%-ns 0.45% + KCl 40 1,000 ML 100 MEQ IV (02:00)
[2024-07-02] MEDS: ondansetron 2 mg/ML SDV 2 mL 4 MG IVP (03:48)
[2024-07-02 05:02] LABS: Blood Urea Nitrogen 2 mg/dL (6-20); Carbon Dioxide 24 mmol/L (22-29); Chloride 94 mmol/L (98-107); Creatinine Clr Calc Pharmacy 153.9231; Glucose 270 mg/dL (65-115); Osmolality Calculated 280 mOsm/kg (285-295); Sodium 132 mmol/L (136-145)
[2024-07-02 05:09] LABS: Anion Gap 17.7 (5-19); Potassium 3.7 mmol/L (3.5-5.1)
[2024-07-02 05:11] LABS: Glucose Point of Care 224 mg/dL (70-110)
[2024-07-02 05:11] LABS: Glucose Point of Care 243 mg/dL (70-110)
[2024-07-02 05:11] LABS: Glucose Point of Care 253 mg/dL (70-110)
[2024-07-02 05:11] LABS: Glucose Point of Care 295 mg/dL (70-110)
[2024-07-02 05:11] LABS: Glucose Point of Care 243 mg/dL (70-110)
[2024-07-02 05:11] LABS: Glucose Point of Care 236 mg/dL (70-110)
[2024-07-02 05:11] LABS: Glucose Point of Care 221 mg/dL (70-110)
[2024-07-02 05:11] LABS: Glucose Point of Care 248 mg/dL (70-110)
[2024-07-02] MEDS: prochlorperazine 10 mg/2 mL Inj IVP (05:38)
[2024-07-02 05:53] LABS: Glucose Point of Care 289 mg/dL (70-110)
[2024-07-02 07:58] LABS: Glucose Point of Care 246 mg/dL (70-110)
[2024-07-02 09:01] LABS: Glucose Point of Care 265 mg/dL (70-110)
[2024-07-02 09:30] LABS: Anion Gap 15.3 (5-19); Blood Urea Nitrogen 2 mg/dL (6-20); Calcium 8.2 mg/dL (8.5-10.5); Carbon Dioxide 25 mmol/L (22-29); Chloride 94 mmol/L (98-107); Glucose 253 mg/dL (65-115); Osmolality Calculated 277 mOsm/kg (285-295); Potassium 3.3 mmol/L (3.5-5.1); Sodium 131 mmol/L (136-145)
[2024-07-02] MEDS: insulin glargine 100 units/1 mL 30 UNIT SUBCUT (09:56)
[2024-07-02 11:32] LABS: Glucose Point of Care 173 mg/dL (70-110)
[2024-07-02 11:51] LABS: Glucose Point of Care 234 mg/dL (70-110)
[2024-07-02 11:51] LABS: Glucose Point of Care 233 mg/dL (70-110)
[2024-07-02] MEDS: sodium chloride 0.9% 1,000 ML 125 ML IV (12:00)
--- NOTE | 2024-07-02 12:00 | PM.DCS ---
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 During hospitalization it was very hard to control her anion gap with insulin and IV fluids it took us roughly 3 days to get her out of DKA. She is stating that she now has enough supply apply of OmniPod insulin which was prescribed by echocardiography technologist. Patient is stating that she remains tachycardic I have asked her to see superintendent refuse disposal if her heart rate consistency remains above 100 patient is stating that even during sleep she could hear palpitations. As per the patient her heart rate is always above 100 and medical assistant per diem in the past told her that it was related to fluctuation in her sugar however I do not see any signs of autonomic dysfunction yet. EKG showing sinus tachycardia rhythm Physical Exam Narrative: Awake and alert Dehydrated GCS 15 Pleasant Nonfocal neuroexam Discharge Data Studies Completed and Pending Completed Studies During Hospitalization Category Date Time Status CT abdomen pelvis wo con [id number] Stat Cat Scan 07/01/24 13:56 Completed Pending at discharge Category Date Time Status BMP [Basic Metabolic Panel] Timed Lab 07/02/24 14:00 Ordered Blood Culture Stat Lab 06/29/24 22:36 Results Radiology Impressions Abdomen/Pelvis CT 07/01/24 13:56 IMPRESSION: No acute intra-abdominal process. Laboratory Results WBC 12.18 10^3/uL (3.29-11.43) H 07/01/24 02:26 RBC 3.73 10^6/uL (3.85-5.65) L 07/01/24 02:26 Hgb 11.30 g/dL (11.27-16.99) 07/01/24 02: Hct 34.1 % (36-47) L 07/01/24 02: MCV 91.4 fl (85-98) 07/01/24 02:26 MCH 30.3 pg (27-33) 07/01/24 02: MCHC 33.1 g/dL (30-55) D 07/01/24 02: RDW 14.1 % (12.1-15.1) 07/01/24 02:26 Plt Count 245 10^3/cmm (157-399) 07/01/24 02: MPV 12.5 fL (7.4-10.4) H 07/01/24 02:26 Neut % (Auto) 81.1 % 07/01/24 02: Lymph % (Auto) 10.3 % 07/01/24 02: [place] % (Auto) 8.1 % 07/01/24 02:26 Eos % (Auto) 0.0 % 07/01/24 02:26 Baso % (Auto) 0.2 % 07/01/24 02:26 Neut # (Auto) 9.88 10^3/uL (1.8-7.7) H 07/01/24 02:26 Lymph # (Auto) 1.3 10^3/uL (0.8-4.8) 07/01/24 02:26 [place] # (Auto) 1.0 10^3/uL (0.2-0.9) H 07/01/24 02:26 Eos # (Auto) 0.0 10^3/uL (0.0-0.8) 07/01/24 02:26 Baso # (Auto) 0.0 10^3/uL (0.0-0.1) 07/01/24 02:26 Nucleated RBC % (auto) 0 % 07/01/24 02: Nucleated RBCs # 0.0 /100WBC 07/01/24 02:26 Specimen Type Arterial 06/29/24 00:15 Sample Site Brachial, left 06/29/24 00:15 ABG pH 7.22 (7.35-7.45) L 06/29/24 00:15 ABG pCO2 23.1 mmHg (35-45) L 06/29/24 00:15 ABG pO2 106.0 mmHg (80.0-100.0) H 06/29/24 00:15 ABG PO2/FiO2 Ratio 504 06/29/24 00:15 ABG HCO3 9.4 mmol/L (22-26) L 06/29/24 00:15 ABG Base Excess -16.6 mmol/L (-2.0-2.0) L 06/29/24 00:15 Trevon Test N/a 06/29/24 00:15 Hematocrit 35.9 % (37-47) L 06/29/24 00:15 O2 Delivery Device Room air 06/29/24 00:15 FiO2 21.0 % 06/29/24 00:15 School Guidance Counselor ID Ed 06/29/24 00:15 Sodium 131 mmol/L (136-145) L 07/02/24 08:51 Potassium 3.3 mmol/L (3.5-5.1) L 07/02/24 08:51 Chloride 94 mmol/L (98-107) L 07/02/24 08:51 Carbon Dioxide 25 mmol/L (22-29) 07/02/24 08:51 Anion Gap 15.3 (5-19) 07/02/24 08:51 BUN 2 mg/dL (6-20) L 07/02/24 08:51 Creatinine 0.4 mg/dL (0.5-0.9) L 07/02/24 08:51 GFR Calculation 185.0 mL/min (90-130) H 07/02/24 08:51 Glucose 253 mg/dL (65-115) H 07/02/24 08:51 POC Glucose 173 mg/dL (70-110) H 07/02/24 11:29 Calculated Osmolality 277 mOsm/kg (285-295) L 07/02/24 08:51 Calcium 8.2 mg/dL (8.5-10.5) L 07/02/24 08:51 Phosphorus 1.7 mg/dL (2.5-4.5) L 06/29/24 22:40 Magnesium 1.8 mg/dL (1.7-2.3) 07/01/24 02:26 Total Bilirubin 0.3 mg/dL (0.15-1.2) 06/29/24 22:40 AST 13 U/L (0-32) 06/29/24 22:40 ALT 15 U/L (0-33) 06/29/24 22:40 Alkaline Phosphatase 95 U/L (35-105) 06/29/24 22:40 Troponin T Baseline < 6 ng/L (0-10) 07/01/24 15:18 Troponin T 120 Minute 7.97 ng/L (0-10) 07/01/24 17:34 Delta Troponin T 1.40092 ABS# (0-10) 07/01/24 17:34 Troponin T Hi Sens 6Hr 6.00 ng/L (0-10) 07/01/24 Unknown Troponin T Hi Sens 6Hr Delta 0.53612 ng/L (0-12) 07/01/24 Unknown Total Protein 6.4 g/dL (6.6-8.7) L 06/29/24 22:40 Albumin 4.3 g/dL (3.5-5.2) 06/29/24 22:40 Globulin 2.1 g/dL (1.3-4.6) 06/29/24 22:40 Procalcitonin 0.16 ng/mL (0-0.5) 06/29/24 22:40 Urine Color Yellow (Yellow) 07/01/24 19:25 Urine Appearance Clear (CLEAR) 07/01/24 19:25 Urine pH 5.5 (5-7) 07/01/24 19:25 Ur Specific [place] 1.016 (1.005-1.030) 07/01/24 19:25 Urine Protein Negative (Negative) 07/01/24 19:25 Urine Glucose (UA) 3+ (Normal) H 07/01/24 19:25 Urine Ketones 3+ (Negative) H 07/01/24 19:25 Urine Blood Negative (Negative) 07/01/24 19:25 Urine Nitrate Negative (Negative) 07/01/24 19:25 Urine Bilirubin Negative (Negative) 07/01/24 19: Urine Urobilinogen 0.2 mg/dL (Negative) 07/01/24 19:25 Ur Leukocyte Esterase 1+ (Negative) A 07/01/24 19:25 Urine RBC 0-2 /hpf (0-2) 07/01/24 19:25 Urine WBC 6-10 /hpf (0-5) 07/01/24 19:25 Ur Squamous Epith Cells 0-5 /hpf (0-5) 07/01/24 19:25 Amorphous Sediment Not Reportable 07/01/24 19:25 Urine Bacteria Trace /hpf (NONE) 07/01/24 19:25 Hyaline Casts 3.30 /lpf 07/01/24 19:25 Vitals Last Vital Signs Temp 98.6 F 07/02/24 08:00 Pulse 74 07/02/24 08:00 Resp 19 H 07/02/24 08:00 BP 145/92 07/02/24 08:00 Pulse Ox 100 07/02/24 04:00 O2 Del Method Room Air 07/02/24 04:00 Discharge Plan Discharge Patient Disposition: Home Condition: Stable Prescriptions: Continued (DME) 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 Misc See Rx Instructions .Route Rx Instructions: As directed (DME) Dexcom G6 Sensor Device See Rx Instructions .Route Rx Instructions: As directed (DME) Dexcom G6 Transmitter Device See Rx Instructions .Route Rx Instructions: As directed (DME) Omnipod 5 G6 Intro Kit (Gen 5) Cartridge See Rx Instructions .ROUTE .COMPLEX Qty: 1 0RF Dose Instruction: USE DIRECTED Rx Instructions: USE DIRECTED (DME) Omnipod 5 G6 Pods (Gen 5) Cartridge See Rx Instructions .Route Qty: 10 1RF Rx Instructions: As directed insulin lispro [Humalog U-100 Insulin] 100 unit/mL solution See Rx Instructions continuous subcutaneous infusion .via pump Qty: 40 8RF Rx Instructions: 100 units max daily dose VIA PUMP; sertraline 100 mg tablet 100 mg PO DAILY buspirone 10 mg tablet 10 mg PO BID cholecalciferol (vitamin D3) [Vitamin D3] 25 mcg (1,000 unit) Capsule 25 mcg PO DAILY Discharge Orders: Discharge Order (Routine); Ordered 07/02/24 Ordered By: Bryant Berry Patient Instructions: Opioid Safety Activity Restrictions/Additional Instructions: If your heart rate persistently stays above 100 you probably will need electrophysiology referral which you can ask your primary care physician to give you referral I do believe at this point it might be premature because you are recovering from DKA and tachycardia will get better once your hydration gets better Discharge Attestations Time Spent in Discharge Care*: greater than 30 min Quality Metrics Clinical Quality Measures [ No reported AMI, CVA or VTE this stay] Coding Level of Care Code Acute Code for Chg Fwd Diagnoses DKA (diabetic ketoacidosis) E11.10 Severe dehydration E86.0 Type 1 diabetes E10.9 Anxiety F41.9 Depression F32.A High cholesterol E78.00
[2024-07-02 13:00] LABS: Glucose Point of Care 168 mg/dL (70-110)
[2024-07-02 15:00] LABS: Anion Gap 18.2 (5-19); Blood Urea Nitrogen 2 mg/dL (6-20); Calcium 8.4 mg/dL (8.5-10.5); Carbon Dioxide 26 mmol/L (22-29); Chloride 97 mmol/L (98-107); Creatinine Clr Calc Pharmacy 157.2544; Glucose 177 mg/dL (65-115); Osmolality Calculated 287 mOsm/kg (285-295); Potassium 3.2 mmol/L (3.5-5.1); Sodium 138 mmol/L (136-145)
[2024-07-02 17:15] LABS: Glucose Point of Care 103 mg/dL (70-110)
[2024-07-02 18:10] LABS: Glucose Point of Care 100 mg/dL (70-110)
[2024-07-02 18:15] LABS: Blood Urea Nitrogen 2 mg/dL (6-20); Carbon Dioxide 26 mmol/L (22-29); Chloride 97 mmol/L (98-107); Glucose 102 mg/dL (65-115); Osmolality Calculated 280 mOsm/kg (285-295); Sodium 137 mmol/L (136-145)
--- NOTE | 2024-07-02 19:35 | PC.NURSE ---
Report received from MARION Haas, assumed care of patient. PIV x 2 removed, patient changed into own clothes, on way to hand picker, discharge paperwork signed. No reports of n/v or abdominal pain at present time.
== END 2024-07-02 19:55 | disposition home or self-care (01) | DRG 639 ==
PROVIDERS: Internal Medicine; Admitting Provider Family Medicine; PCP Family Medicine; Visit Provider Internal Medicine
DX: E10.10 Type 1 diabetes mellitus with ketoacidosis without coma (principal); E86.0 Dehydration; F41.9 Anxiety disorder, unspecified; F32.A Depression, unspecified; E78.5 Hyperlipidemia, unspecified; R00.0 Tachycardia, unspecified; Z91.141 Patient's other noncompliance with medication regimen due to financial hardship; T38.3X6A Underdosing of insulin and oral hypoglycemic [antidiabetic] drugs, initial encounter
CPT/HCPCS: 36415; 36416; 36600; 74176; 80048; 80053; 81001; 82803; 82962; 83735; 84100; 84145; 84484; 85025; 87040; 93005; 96372; 96376; J0780; J1650; J1815; J2405; J2765; J3480; J7030; J7070; J7799; Q0162

== ENCOUNTER 2025-01-24 16:17 | Outpatient (CLI) | payer BC, SELFPAY ==
--- NOTE | 2025-01-24 16:23 | XRR_ITS ---
PROCEDURE INFORMATION: Exam: XR Left Forearm Exam date and time: 01/24/2025 4:52 PM Age: 34 years old Clinical indication: Pain; Lower or forearm; Left; Prior surgery; Surgery date: 6+ months; Surgery type: Plates and screws; Additional info: Left arm bruising/pain TECHNIQUE: Imaging protocol: Radiologic exam of the left forearm. Views: 2 views. COMPARISON: No relevant prior studies available. FINDINGS: Bones/joints: Intact ORIF hardware in the radial and ulnar diaphyses. No acute fracture. Soft tissues: Normal. XR/XR forearm LT 2V [id number] IMPRESSION: No acute findings.
== END 2025-01-24 16:18 | disposition home or self-care (01) ==
PROVIDERS: PCP Family Medicine; Visit Provider Nurse Practitioner Family
DX: M79.602 Pain in left arm (principal); Z96.89 Presence of other specified functional implants
CPT/HCPCS: 73090

== ENCOUNTER 2025-02-08 09:00 | Outpatient (CLI) | payer BC, SELFPAY ==
--- NOTE | 2025-02-08 09:06 | USCV_ITS ---
Francisca Pavon Age: 34 Gender: F : 1990 Exam Date: 02/08/2025 09:28 Ordering Phys: Monet Nj Technologist: Bonifacio Saldaña Exam Location[place] [facility] [place] Indication: pain in left arm PROCEDURES: Venous duplex imaging was performed in only the left upper extremity. The following venous structures were evaluated: internal jugular vein, subclavian vein, axillary vein, and brachial veins. In addition, the basilic vein, cephalic vein, radial vein, and ulnar vein. FINDINGS: The veins of the left upper extremity are readily compressible with normal venous flow dynamics including spontaneous flow, respiratory phasic variation and augmentation. No evidence of deep vein thrombosis or superficial thrombophlebitis in the left upper extremity. CONCLUSIONS No evidence of thrombus of the left upper extremity veins. Trevon Reyes MD (Electronically Signed) Final Date: 08 February 2025 12:49 S
== END 2025-02-08 09:01 | disposition home or self-care (01) ==
LOC: RAD 09:01
PROVIDERS: PCP Family Medicine; Visit Provider Nurse Practitioner Family
DX: M79.602 Pain in left arm (principal); R58 Hemorrhage, not elsewhere classified
CPT/HCPCS: 93971

== ENCOUNTER → 2025-05-07 12:14 | Outpatient (BNVA) | payer BC, SELFPAY | PROVIDERS: PCP Family Medicine; Visit Provider Internal Medicine | DX: E11.10 Type 2 diabetes mellitus with ketoacidosis without coma (principal) | CPT/HCPCS: 36415; 80053; 80061; 82044; 83036 ==